=== PATIENT | female | born 1955 | race Two or more races ===

== ENCOUNTER 2020-11-07 05:45 | Day surgery (SDC) | payer OTHER ==
[~2020-11-07 05:45] MED LIST: COMBIGAN EYE DRO5 ML OP; HYDRALAZINE HCL25 MG; LUMIGAN2.5 M1 OP; PRAVASTATIN SOD20 MG PO; SYNTHROID125 MCG; TRETAL
== END 2020-11-07 12:30 | disposition home or self-care (01) ==
LOC: CIR.AMB 05:45
PROVIDERS: ATTEND Obstetrics & Gynecology
DX: N84.0 Polyp of corpus uteri (principal); Z20.822 Contact with and (suspected) exposure to COVID-19